=== PATIENT | male | born 1975 | race American Indian/Alaskan Native ===

== ENCOUNTER 2016-10-07 08:52 | Outpatient (CLI) | payer BC ==
[2016-10-07] MEDS ORDERED: LASIX IV NR (09:58)
[2016-10-07] MEDS ORDERED: LASIX ONE (10:21)
[2016-10-07 10:22] VITALS: BP 114/84
== END 2016-10-07 08:53 | disposition home or self-care (01) ==
LOC: NM 08:52
PROVIDERS: ATTEND Urology
DX: N20.0 Calculus of kidney (principal)
CPT/HCPCS: 78708; A9562; J1940